=== PATIENT | male | born 1945 | race Caucasian/White ===

== ENCOUNTER 2021-07-06 09:48 | Outpatient (CLI) | payer MEDICARE, SELFPAY ==
--- NOTE | 2021-07-06 10:57 | ECG_ITS ---
Measurements Intervals [place] Rate: 54 P: 78 NM: 201 QRS: 14 QRSD: 93 T: 23 QT: 421 QTc: 401 Interpretive Statements SINUS BRADYCARDIA BORDERLINE AV CONDUCTION DELAY BORDERLINE ECG Electronically Signed On 07-06-2021 11:22:38 CDT by Nato Todd D.O.
[2021-07-06 11:34] LABS: Basophils Absolute Auto 0.1 K/mm3 (0.0-0.1); Eosinophils Absolute Auto 0.2 K/mm3 (0-0.3); Eosinophils Percent Auto 2.7 % (0-4.4); Hematocrit 52.5 % (42.0-52.0); Hemoglobin 17.2 g/dL (14.0-18.0); Immature Granulocyte Absolute 0.04 K/mm3 (0.00-0.031); Immature Granulocyte Percent A 0.6 % (0-0.5); Lymphocytes Absolute Auto 1.24 K/mm3 (0.9-3.2); Lymphocytes Percent Auto 19.7 % (18.3-44.2); Mean Corpuscular HGB Conc 32.8 g/dl (32-36); Mean Corpuscular Hemoglobin 29.8 pg (26-34); Mean Corpuscular Volume 90.8 fl (80-100); Monocytes Absolute Auto 0.5 K/mm3 (0.1-0.6); Monocytes Percent Auto 8.6 % (2.6-8.5); Neutrophils Absolute Auto 4.2 K/mm3 (1.3-6.7); Neutrophils Percent Auto 67.4 % (45.5-73.1); Platelet Count Result 218 k/mm3 (150-375); Red Blood Count 5.78 M/mm3 (4.6-6.20); Red Cell Distribution Width 14.2 % (11.5-14.5); White Blood Count 6.3 K/mm3 (4.5-10.0)
[2021-07-06 11:46] LABS: Albumin Level 4.8 g/dL (3.5-5.1); Anion Gap 8 mmol/L (8-16); Blood Urea Nitrogen 13 mg/dL (9-20); Calcium 9.1 mg/dL (8.4-10.2); Carbon Dioxide 26 mmol/L (22-30); Chloride 106 mmol/L (98-107); Estimated Glomerular Filt Rate > 60; Glucose 163 mg/dL (65-110); Potassium 4.1 mmol/L (3.4-5.0); Sodium 140 mmol/L (137-145)
[2021-07-06 11:50] LABS: Urine Cotinine NEGATIVE
== END 2021-07-06 09:49 | disposition home or self-care (01) ==
LOC: ANHSURGERY 09:55
PROVIDERS: PCP Internal Medicine; Visit Provider Orthopaedic Surgery
DX: Z01.818 Encounter for other preprocedural examination (principal); M17.12 Unilateral primary osteoarthritis, left knee
CPT/HCPCS: 80048; 80307; 82040; 85025; 86850; 86900; 86901; 87070; 87077; 87186; 93005

== ENCOUNTER 2021-07-18 03:15 | Day surgery (SDC) | payer MEDICARE, SELFPAY ==
[2021-07-06 10:39] VITALS: BP 156/80; PULSE 64; RESP 20; TEMP 36.6; O2SAT 97; BMI 33.7
--- NOTE | 2021-07-17 13:00 | WPDANESEPPF ---
Anes - Initial Pre Proc Eval Procedure: Operation Date: 07/18/21 12:00 Proposed Procedures p Left Total Knee Arthroplasty - Logan Escalante MD Date/Time: 07/17/21 13:00 Surgeon: Logan Escalante MD Pre Op Diagnosis: OA left knee Patient Data Age: 76 Gender: M Height: 1.8 m Weight: 109.9 kg Last Vital Signs Temp 97.8 F 07/06/21 10:39 Pulse 64 07/06/21 10:39 Resp 20 07/06/21 10:39 BP 156/80 H 07/06/21 10:39 Pulse Ox 97 07/06/21 10:39 Allergies Allergy/AdvReac Type Severity Reaction Status Date / Time No Known Allergies Allergy Verified 07/06/21 10:27 Home Medications Medication Instructions Recorded Confirmed Type aspirin 81 mg PO QAM 07/06/21 07/06/21 History cholecalciferol (vitamin D3) 25 mcg PO QAM 07/06/21 07/06/21 History dutasteride 0.5 mg PO HS 07/06/21 07/06/21 History empagliflozin 25 mg PO QAM 07/06/21 07/06/21 History fiber 4 tablet PO QAM 07/06/21 07/06/21 History glimepiride 4 mg PO BID 07/06/21 07/06/21 History glucosam-chondr msm6-manganese 2 cap PO QAM 07/06/21 07/06/21 History lisinopril 10 mg PO HS 07/06/21 07/06/21 History meloxicam 15 mg PO QAM 07/06/21 07/06/21 History metformin 1,000 mg PO BID 07/06/21 07/06/21 History multivitamin [Multi-Vitamin] 1 tablet PO QAM 07/06/21 07/06/21 History pioglitazone 30 mg PO QAM 07/06/21 07/06/21 History prednisolone acetate 1 drp BID 07/06/21 07/06/21 History simvastatin 40 mg HS 07/06/21 07/06/21 History Results Review: All pre-operative results and documents have been reviewed as part of the pre-operative evaluation. [facility] Past Medical History Medical History (Updated 07/17/21 @ 12:59 by Ramesh Fuentes MD) Diabetes Hyperlipidemia Hypertension Social History Social History Smoking packs per day: 1.5 Smoking cigarettes per day: 30.0 Years smoked: 10 Smoking pack-years: 15.00 Smoking status: Former smoker Additional smoking assessment comments: STATES QUITTING 1980 Alcohol use details: STATES MAYBE 3-4 DRINKS A YEAR Substance use: never Substance use type: does not use Additional living arrangements comments: LIVES WITH BROTHER Spiritual care concerns: No Anes - Eval Final PreProcedure Day of Procedure 07/17/21 13:00 Results Review: All pre-operative results and documents have been reviewed as part of the pre-operative evaluation. Informed Consent: The patient's anesthetic plan and its attendant risks and benefits were discussed with the patient/family/POA. Questions were solicited and answers provided to the satisfaction of the patient/family/POA.
[2021-07-18] VITALS (13 sets, daily range): BP systolic 153–169; BP diastolic 62–81; PULSE 67–81; RESP 15–20; TEMP 36.1–37.5; O2SAT 93–100; BMI 33.0
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
--- NOTE | 2021-07-18 07:25 | PM.IMHP ---
H&P: HPI History of Present Illness Date/Time: 07/18/21 07:25 76-year-old male presents today for a left total Knee arthroplasty. He has been having pain in this knee for several years. He has had multiple viscosupplementation injections as well as multiple cortisone injections over last several years. At this point injections are not working. It has been well over 6 months since his last injection. He is on meloxicam 15 mg daily as well. He has advanced medial compartment arthritis in left knee. Patient had his right knee replaced [place] [address] Escalante and is doing very well for him and he is very happy with results. He feels at this point he is ready proceed with left total knee arthroplasty. Chief Complaint: left knee DJD Review of Systems Review of Systems: All systems reviewed & are unremarkable except as noted in HPI and below PMFSH Past Medical History Medical History Diabetes Hyperlipidemia Hypertension Social History Social History Smoking packs per day: 1.5 Smoking cigarettes per day: 30.0 Years smoked: 10 Smoking pack-years: 15.00 Smoking status: Former smoker Additional smoking assessment comments: STATES QUITTING 1980 Alcohol use details: STATES MAYBE 3-4 DRINKS A YEAR Substance use: never Substance use type: does not use Living arrangements: with family Additional living arrangements comments: LIVES WITH BROTHER Spiritual care concerns: No Meds Home Medications and Allergies Home Medications Medication Instructions Recorded Confirmed Type aspirin 81 mg PO QAM 07/06/21 07/06/21 History cholecalciferol (vitamin D3) 25 mcg PO QAM 07/06/21 07/06/21 History dutasteride 0.5 mg PO HS 07/06/21 07/06/21 History empagliflozin 25 mg PO QAM 07/06/21 07/06/21 History fiber 4 tablet PO QAM 07/06/21 07/06/21 History glimepiride 4 mg PO BID 07/06/21 07/06/21 History glucosam-chondr msm6-manganese 2 cap PO QAM 07/06/21 07/06/21 History lisinopril 10 mg PO HS 07/06/21 07/06/21 History meloxicam 15 mg PO QAM 07/06/21 07/06/21 History metformin 1,000 mg PO BID 07/06/21 07/06/21 History multivitamin [Multi-Vitamin] 1 tablet PO QAM 07/06/21 07/06/21 History pioglitazone 30 mg PO QAM 07/06/21 07/06/21 History prednisolone acetate 1 drp BID 07/06/21 07/06/21 History simvastatin 40 mg HS 07/06/21 07/06/21 History Allergies Allergy/AdvReac Type Severity Reaction Status Date / Time No Known Allergies Allergy Verified 07/06/21 10:27 Exam Narrative: 76-year-old male alert pleasant. He is 5 ft 11 and 240 lb. His left knee has minimal effusion. Range of motion is from 7-115 degrees. Hip range of motion is slightly reduced but no discomfort with range of motion. Negative Stinchfield maneuver. Normal quad strength. Skin is all normal around the knee. 2+ dorsalis pedis and posterior tibial artery pulse. Normal sensation left lower extremity. No edema. 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 Walks with a significant limp. Resp: Auscultation: clear to auscultation bilaterally Cardio: Rate: regular rate Rhythm: regular rhythm Assessment and Plan Additional Plan 76-year-old male has severe medial compartment arthritis in left knee with continued symptoms. Again he is not improved nonsurgical treatment feels this point is ready to proceed with total knee arthroplasty. Surgical procedure as well as risks complications were discussed in detail all questions were answered we will proceed. Nasal swab did grow oxacillin sensitive Staph aureus and he has the colonizing. Chem panel is all within normal limits. Creatinine 0.80. Hemoglobin is 17 2 and platelets are 218. patient will void as Mobic and any other aspirin or ibuprofen products 1 prior surgery. He will see his primary care doctor pre-surgical clearance. We will plan his Eliquis for DVT pr
[2021-07-18] MEDS: LACTATED RINGERS 1,000 ML 30 ML IV CONT ×2 (10:29→15:50)
[2021-07-18 10:33] LABS: Glucose Point of Care 168 mg/dl (65-105)
[2021-07-18] MEDS: TRANEXAMIC ACID 1,000MG/ISO100 1,000 MG/100 ML BAG 200 MG IVPB (10:33)
[2021-07-18] MEDS: ACETAMINOPHEN 500 MG TABLET 1000 MG PO ×2 (10:35→18:30)
--- NOTE | 2021-07-18 11:52 | WPDHPUPDATE1 ---
History and Physical Update Update Date/Time: 07/18/21 11:52 History and Physical has been reviewed, including an updated exam of the patient. There are NO changes in the patient's condition. Risks, benefits, and alternatives have been discussed and questions answered. Patient agrees to proceed with procedure.
--- NOTE | 2021-07-18 11:57 | WPDANESEPPF ---
Anes - Initial Pre Proc Eval Procedure: Operation Date: 07/18/21 12:00 Proposed Procedures p Left Total Knee Arthroplasty - Logan Escalante MD Date/Time: 07/18/21 11:57 Surgeon: Logan Escalante MD Pre Op Diagnosis: OA left knee Patient Data Age: 76 Gender: M Height: 1.8 m Weight: 107.3 kg Last Vital Signs Temp 36.1 C L 07/18/21 10:05 Pulse 67 07/18/21 10:05 Resp 18 07/18/21 10:05 BP 155/67 H 07/18/21 10:05 Pulse Ox 98 07/18/21 10:05 Allergies Allergy/AdvReac Type Severity Reaction Status Date / Time No Known Allergies Allergy Verified 07/18/21 10:10 Home Medications Medication Instructions Recorded Confirmed Type aspirin 81 mg PO QAM 07/06/21 07/18/21 History cholecalciferol (vitamin D3) 25 mcg PO QAM 07/06/21 07/18/21 History dutasteride 0.5 mg PO HS 07/06/21 07/18/21 History empagliflozin 25 mg PO QAM 07/06/21 07/18/21 History fiber 4 tablet PO QAM 07/06/21 07/18/21 History glimepiride 4 mg PO BID 07/06/21 07/18/21 History glucosam-chondr msm6-manganese 2 cap PO QAM 07/06/21 07/18/21 History lisinopril 10 mg PO HS 07/06/21 07/18/21 History meloxicam 15 mg PO QAM 07/06/21 07/18/21 History metformin 1,000 mg PO BID 07/06/21 07/18/21 History multivitamin [Multi-Vitamin] 1 tablet PO QAM 07/06/21 07/18/21 History pioglitazone 30 mg PO QAM 07/06/21 07/18/21 History prednisolone acetate 1 drp BID 07/06/21 07/18/21 History simvastatin 40 mg HS 07/06/21 07/18/21 History Laboratory Tests 07/18/21 10:27 POC Capillary Glucose 168 mg/dl H mg/dl (65-105) Patient hx anesthesia problems: post op nausea/vomiting Family hx anesthesia problems: none Results Review: All pre-operative results and documents have been reviewed as part of the pre-operative evaluation. [facility] Past Medical History Medical History Diabetes Hyperlipidemia Hypertension Social History Social History Smoking packs per day: 1.5 Smoking cigarettes per day: 30.0 Years smoked: 10 Smoking pack-years: 15.00 Smoking status: Former smoker Additional smoking assessment comments: STATES QUITTING 1980 Alcohol use details: STATES MAYBE 3-4 DRINKS A YEAR Substance use: never Substance use type: does not use Living arrangements: with family Additional living arrangements comments: LIVES WITH BROTHER Spiritual care concerns: No Anes - Eval Final PreProcedure Day of Procedure 07/18/21 11:57 Patient weight: obese Heart: regular rate and rhythm Lungs: clear to auscultation and normal air movement Airway: Mallampati scale class II Neurological: alert and oriented Last oral intake: >/= 8 hours ASA classification: III Emergent: no Anesthetic plan: proceed Anesthesia type and monitoring: general LMA and standard monitoring Results Review: All pre-operative results and documents have been reviewed as part of the pre-operative evaluation. Informed Consent: The patient's anesthetic plan and its attendant risks and benefits were discussed with the patient/family/POA. Questions were solicited and answers provided to the satisfaction of the patient/family/POA.
[2021-07-18] MEDS: ceFAZolin 2 GM/D5W 50 ML 2 GM/50 ML BAG IVPB (12:11)
[2021-07-18] MEDS: ceFAZolin SODIUM 1 GM VIAL 3 GM IRRIGATION (12:52)
--- NOTE | 2021-07-18 15:31 | W.PM.PROC2 ---
Procedure Note - Detailed Date of Procedure 07/18/21 Pre-op Diagnosis OA left knee Post-op Diagnosis same Procedure Performed Left total knee arthroplasty Surgeon Logan Escalante MD Health Teacher Nicole Anesthesia general Description of Procedure Patient was brought to the operating room and general anesthesia was administered. He received 2 g Ancef weight based vancomycin 1 g of tranexamic acid preoperatively left knee prepped draped usual fashion. He did have a 7 degree flexion contracture under anesthesia and I could not passively bend him to more than 110?. Limb was exsanguinated and tourniquet elevated to 250 mmHg. 8 in longitudinal midline incision was used and a standard parapatellar arthrotomy utilized. Infrapatellar and suprapatellar fat pads were excised a quadriceps synovectomy carried out. He had normal articular cartilage on the patella. There was a small inferomedial osteophyte was trimmed and a limited lateral facetectomy was performed and I felt this was most suitable for non resurfacing. A guide theo was inserted down the femoral canal for aspiration of canal contents using the 5 degree valgus cutting bushing 10 mm of bone removed the distal femur. This removed about 7 laterally. Next the tibial plateau was cut. I tried to make a skim cut off the low point of the medial tibial plateau. He did have a bit of wear posteromedially. The PCL was recessed meniscal or remnants excised. The knee was excessively tight medially still in flexion and extension. The femur sizing guide was applied set at 5? of external rotation and posterior reference in pin holes were placed and the 72.5 cutting block was applied and AP and chamfer cuts were made and this fit well. The knee was too tight to place the 10 mm trial CR insert in either flexion or extension however therefore an additional 2 mm of bone were removed from the tibial plateau. This was made perpendicular to the axis of the tibia. The tibia was then prepared using the 79 vanguard tibial component set at proper rotation referenced to the tubercle anterior cortex of the tibia and the 2nd metatarsal ray. This was punched and we trialed and the 10 mm insert. This came out to full extension with tightness medial some lateral laxity and in flexion it was tight medially with no play and about 2 or 3 mm of gap at 90? bilaterally. I elected to remove posteromedial tibial osteophyte. 2 mm drill bit was used to make multiple perforations 5 mm apart and quarter-inch osteotome connecting these and this bone was removed. On trialing again we used the 11 insert and this had a little bit of flatus 90? much better feel to it and easily came out to full extension with 1 mm medial opening with valgus stress and 3 mm laterally. With varus stress. We trialed the 12 which was a little bit snug at 90? and it did come out to full extension but no plate medially and see just a bit tight. I felt we were balanced. I had already moved posterior femoral osteophyte which was present medially. Lug holes drilled the femoral. Step drill was used is tibial plateau the medial aspect of sclerotic and as well as the distal femur. The bony surfaces were thoroughly irrigated and dried. Two batches of methylmethacrylate were mixed 1 containing the gentamicin powder the cement was applied to the tibial component and then the femoral component cement applied to the tibia pressurized tibial component fully seated cement applied to the femur the femoral component 79 point x-ray of 72.5 fully seated the knee brought into extension with 11 mm 5 1 insert for pressurization the tourniquet released 107 minutes. Cement was allowed to harden after which excess cement was sought for removed and hemostasis was achieved. We trialed the 11 insert and there was a little bit more play opening up about a mm and half medially and extension 3 laterally a little bit of extra play at 90? so I tried the 12 and the 12 came out to full
[2021-07-18] MEDS: fentaNYL CITRATE INJ (*CRX) 100 MCG/2 ML VIAL 25 MCG IV PUSH ×3 (16:00→16:40)
[2021-07-18 16:08] LABS: Glucose Point of Care 227 mg/dl (65-105)
--- NOTE | 2021-07-18 16:08 | SUR.PHASEI ---
notified Dr. Hale of blood sugar 227
--- NOTE | 2021-07-18 17:20 | ADMGEN ---
This patient, Leandro Mckinney Jr., was admitted to Medical Room 253-01. Patient/family oriented to hospital policies and general routines including ID bracelet, bed and alarms, visiting hours, pain management, procedures, bathroom and other care routines, personal items, smoking policy, room service/diet, and visiting hours. Information on how to activate the Rapid Response Team has been discussed. Patient/Family are encouraged to report perceived risks to care and to ask questions if they do not understand what they are told or what they should do.
[2021-07-18] MEDS: DEXTROSE 5%/0.45% SOD CHL 1,000 ML 100 ML IV CONT (18:24)
[2021-07-18] MEDS: DOCUSATE SODIUM 100 MG CAPSULE PO (18:32)
[2021-07-18] MEDS: oxyCODONE HCL (*CRX) 5 MG TAB IR PO ×2 (18:32→21:40)
[2021-07-18] MEDS: GLIMEPIRIDE 2 MG TABLET 4 MG PO (18:33)
[2021-07-18] MEDS: metFORMIN HCL 500 MG TABLET 1000 MG PO (18:34)
[2021-07-18] MEDS: prednisoLONE ACETATE 1% OPHTH 5 ML 1 DROP LEFT EYE (18:36)
[2021-07-18] MEDS: SENNA/DOCUSATE SODIUM TABLET 2 TAB PO (18:36)
[2021-07-18 20:50] LABS: Glucose Point of Care 244 mg/dl (65-105)
[2021-07-18] MEDS: DUTASTERIDE 0.5 MG CAPSULE PO (21:40)
[2021-07-18] MEDS: SIMVASTATIN 5 MG TABLET 40 MG BY MOUTH (21:42)
[2021-07-18] MEDS: ONDANSETRON INJ 4 MG/2 ML VIAL IV PUSH (21:46)
[2021-07-19] MEDS: ACETAMINOPHEN 500 MG TABLET 1000 MG PO ×2 (00:33→05:35)
[2021-07-19] MEDS: oxyCODONE HCL (*CRX) 5 MG TAB IR PO ×2 (00:33→05:35)
[2021-07-19 01:56] VITALS: BP 136/60; PULSE 66; RESP 14; TEMP 36.6; O2SAT 97
[2021-07-19 04:42] VITALS: BP 115/56; PULSE 64; RESP 16; TEMP 37.1; O2SAT 96
[2021-07-19 05:33] LABS: Basophils Percent Auto 0.4 % (0.2-1.2); Eosinophils Percent Auto 0.3 % (0-4.4); Hematocrit 39.8 % (42.0-52.0); Hemoglobin 13.1 g/dL (14.0-18.0); Immature Granulocyte Absolute 0.06 K/mm3 (0.00-0.031); Immature Granulocyte Percent A 0.6 % (0-0.5); Lymphocytes Absolute Auto 1.06 K/mm3 (0.9-3.2); Lymphocytes Percent Auto 10.9 % (18.3-44.2); Mean Corpuscular HGB Conc 32.9 g/dl (32-36); Mean Corpuscular Hemoglobin 29.9 pg (26-34); Mean Corpuscular Volume 90.9 fl (80-100); Monocytes Absolute Auto 1.1 K/mm3 (0.1-0.6); Monocytes Percent Auto 10.8 % (2.6-8.5); Neutrophils Absolute Auto 7.5 K/mm3 (1.3-6.7); Platelet Count Result 163 k/mm3 (150-375); Red Blood Count 4.38 M/mm3 (4.6-6.20); Red Cell Distribution Width 14.1 % (11.5-14.5); White Blood Count 9.8 K/mm3 (4.5-10.0)
[2021-07-19 05:48] LABS: Anion Gap 6 mmol/L (8-16); Blood Urea Nitrogen 17 mg/dL (9-20); Calcium 7.9 mg/dL (8.4-10.2); Carbon Dioxide 24 mmol/L (22-30); Chloride 106 mmol/L (98-107); Estimated CRCL calculation 88 ml/min; Estimated Glomerular Filt Rate > 60; Glucose 197 mg/dL (65-110); Sodium 136 mmol/L (137-145)
--- NOTE | 2021-07-19 07:14 | PM.PNORT ---
Progress Note: A&P Additional Plan Postop day 1 patient is alert, a afebrile and vital signs are stable. He did have some mild nausea we 1st got out bed last night. No episode of vomiting. The nausea has completely dissipated at this point. The pain is well controlled. dressing is dry. Neurovascular is intact. Labs are noted. Will plan to have patient work with physical therapy today and if he continues to well plan on discharging him home this afternoon. Patient has had his right knee replaced in the past and is very familiar with the recovery. Subjective Subjective Date/Time Seen: 07/19/21 07:14 Objective Data Vital Signs Vital Signs: Vital Signs - 24 hr 07/18/21 10:05 07/18/21 15:50 07/18/21 16:00 Temperature 36.1 C L 36.2 C L Pulse Rate 67 79 78 Respiratory Rate 18 20 19 Blood Pressure 155/67 H 153/74 H 167/78 H Pulse Oximetry 98 98 97 07/18/21 16:15 07/18/21 16:20 07/18/21 16:35 Temperature Pulse Rate 81 77 74 Respiratory Rate 19 15 16 Blood Pressure 158/62 H 158/62 H 169/79 H Pulse Oximetry 100 96 94 07/18/21 16:50 07/18/21 17:05 07/18/21 17:20 Temperature 37.5 C Pulse Rate 75 73 74 Respiratory Rate 16 17 16 Blood Pressure 161/77 H 157/81 H 154/66 H Pulse Oximetry 93 97 98 07/18/21 17:35 07/18/21 18:05 07/18/21 20:10 Temperature 36.6 C 36.4 C 37.0 C Pulse Rate 77 75 75 Respiratory Rate 16 16 18 Blood Pressure 155/65 H 153/66 H 153/69 H Pulse Oximetry 95 98 95 07/18/21 20:24 07/19/21 01:56 07/19/21 04:42 Temperature 36.6 C 37.1 C Pulse Rate 72 66 64 Respiratory Rate 18 14 16 Blood Pressure 136/60 115/56 L Pulse Oximetry 96 97 96 Intake/Output Intake/Output: Intake & Output 07/16/21 07/17/21 07/18/21 07/19/21 23:59 23:59 23:59 23:59 Intake Total 850 1250 Output Total 250 300 Balance 600 950 Meds/Results Medications: Active Medications Generic Name Dose Route Start Last Admin Trade Name Yazmin PRN Reason Stop Dose Admin Acetaminophen 1,000 mg 07/18/21 18:00 07/19/21 05:35 Acetaminophen 500 Mg Tablet PO 1,000 mg Q6H CHATA Administration Apixaban 2.5 mg 07/19/21 09:00 Apixaban 2.5 Mg Tablet PO Q12HR CHATA Celecoxib 200 mg 07/19/21 08:00 Celecoxib 200 Mg Capsule PO DAILY@0800 CHATA Cephalexin HCl 500 mg 07/19/21 18:00 Cephalexin 500 Mg Capsule PO 08/02/21 17:59 Q6HR CHATA Docusate Sodium 100 mg 07/18/21 17:07 07/18/21 18:32 Docusate Sodium 100 Mg Capsule PO 100 mg BID CHATA Administration Dutasteride 0.5 mg 07/18/21 21:00 07/18/21 21:40 Dutasteride 0.5 Mg Capsule PO 0.5 mg HS CHATA Administration Glimepiride 4 mg 07/18/21 17:00 07/18/21 18:33 Glimepiride 2 Mg Tablet PO 4 mg BIDWM CHATA Administration Cefazolin Sodium 1 gm in 50 mls @ 100 mls/hr 07/18/21 20:00 07/19/21 04:40 Ancef 1 Gm/D5w 50 Ml Pm IVPB 07/19/21 12:29 Infused Q8H CHATA Infusion Dextrose/Sodium Chloride 1,000 mls @ 100 mls/hr 07/18/21 17:07 07/19/21 05:34 Dextrose 5% Sodium Chloride 0.45% IV CONT Infused .Q10H CHATA Infusion Vancomycin HCl 1,000 mg in 250 mls @ 250 mls/hr 07/18/21 22:00 07/18/21 22:45 Vancomycin 1,000 Mg/D5w 250 Ml IVPB 07/19/21 10:59 Infused Q12H CHATA Infusion Metformin HCl 1,000 mg 07/18/21 17:07 07/18/21 18:34 Metformin Hcl 500 Mg Tablet PO 1,000 mg BIDWM CHATA Administration Miscellaneous Information 1 each 07/18/21 00:01 Fiber Tab Please Specify Medication Name And Mg Dosage XX 08/17/21 00:00 CLARIFY CHATA Morphine Sulfate 2 mg 07/18/21 17:07 Morphine Sulfate (*Crx) 2 Mg/Ml Inj IV PUSH Q1H PRN Pain Rated 7-10 Multivitamins Therapeutic 1 tablet 07/19/21 09:00 Multivitamins Therapeutic Tab (*Bkc) PO QAM CHATA Naloxone HCl 0.1 mg 07/18/21 17:07 Naloxone Hcl 0.4 Mg/Ml Vial IV PUSH Q2M PRN Opiate Reversal Non-Formulary Medication 4 tablet 07/19/21 09:00 Fiber PO 08/18/21 08:[facility] [place]
--- NOTE | 2021-07-19 07:21 | PM.DS ---
DS: Admitting Diagnosis Discharge Date 07/19 Admitting Diagnosis right knee DJD DS: Summary Hospital Course Hospital Course: stable Time Spent with Patient Time attestation: Total time spent providing and/or coordinating discharge services: 76-year-old male who underwent left total knee arthroplasty on . Underwent procedure without any complications. Postoperatively he was nauseous briefly when he 1st got up out of bed. This quickly past. He is weight-bearing as tolerated. He has a Mepilex dressing over his knee. He is on Eliquis for DVT prophylaxis followed by baby aspirin. We are using hydrocodone 7.5 mg for pain control. He does not tolerate oxycodone. He is on Celebrex 200 mg once a day as well for pain control. Overall patient did well following his left total knee arthroplasty. He is going to work with physical therapy and will plan on discharging him home on 07/19. He was advised to keep leg elevated home prevent swelling but does exercise on a regular basis. His outpatient therapy starting next week. Patient was advised any questions or concerns he is to call the office otherwise will see him at his appointment date. DS: Data Data Completed and Pending Labs on day of discharge: Labs from last 24 hours 07/19/21 07/19/21 07/18/21 05:19 05:19 20:47 WBC 9.8 RBC 4.38 L Hgb 13.1 L D Hct 39.8 L MCV 90.9 MCH 29.9 MCHC 32.9 RDW 14.1 Plt Count 163 MPV 12.0 H Immature Gran % (Auto) 0.6 H Neut % (Auto) 77.0 H Lymph % (Auto) 10.9 L [place] % (Auto) 10.8 H Eos % (Auto) 0.3 Baso % (Auto) 0.4 Lymph # (Auto) 1.06 [place] # (Auto) 1.1 H Eos # (Auto) 0.0 Baso # (Auto) 0.0 Abs Immat Gran (auto) 0.06 H Absolute Neuts (auto) 7.5 H Absolute Nucleated RBC 0.0 Nucleated RBC % 0.0 Sodium 136 L Potassium 4.0 Chloride 106 Carbon Dioxide 24 Anion Gap 6 L BUN 17 Creatinine 0.80 Estim Creat Clear Calc 88 Estimated GFR > 60 Glucose 197 H POC Capillary Glucose 244 H Calcium 7.9 L 07/18/21 07/18/21 16:05 10:27 WBC RBC Hgb Hct MCV MCH MCHC RDW Plt Count MPV Immature Gran % (Auto) Neut % (Auto) Lymph % (Auto) [place] % (Auto) Eos % (Auto) Baso % (Auto) Lymph # (Auto) [place] # (Auto) Eos # (Auto) Baso # (Auto) Abs Immat Gran (auto) Absolute Neuts (auto) Absolute Nucleated RBC Nucleated RBC % Sodium Potassium Chloride Carbon Dioxide Anion Gap BUN Creatinine Estim Creat Clear Calc Estimated GFR Glucose POC Capillary Glucose 227 H 168 H Calcium Discharge Plan Discharge Patient Disposition: Home, Self-Care Discharge Instructions: LOGAN ESCALANTE M.D [facility] [address] [place] [id number] POST-OPERATIVE DISCHARGE INSTRUCTIONS TOTAL KNEE ARTHROPLASTY 1. When resting, lie on back with leg elevated above hear to minimize swelling. Significant swelling could indicate a blood clot and if this occurs call the office (or go to the ER) to have a venous ultrasound. 2. Do exercise 5 times a day. 3. Do not sit with leg down except for meals. 4. Wound Care: Nursing will give additional dressings at discharge. Patient to change dressing at home 1 week from surgery, then maintain until seen in office. 5. May shower with dressing in place. 6. Follow weight bearing status instructions. 7. Limit Sitting in chair with leg down to 20 minutes at a time 3 times a day. Stand Alone Forms: General Discharge Instructions Follow-up/Referrals: Logan Escalante MD [Physician] - Keep Reg. Scheduled Appt. Discharge Medications: New Eliquis 2.5 mg Tablet 2.5 mg PO Q12HR Qty: 27 RF: 0 celecoxib [Celebrex] 200 mg Capsule 200 mg PO DAILY@0800 Qty: 30 RF: 0 sennosides-docusate sodium [Senokot-S] 8.6-50 mg Tablet 2 tab PO BID Qty: 60 RF: 0 ce
[2021-07-19 07:33] LABS: Glucose Point of Care 176 mg/dl (65-105)
[2021-07-19] MEDS: ONDANSETRON INJ 4 MG/2 ML VIAL IV PUSH (07:49)
[2021-07-19] MEDS: prednisoLONE ACETATE 1% OPHTH 5 ML 1 DROP LEFT EYE (07:56)
--- NOTE | 2021-07-19 08:06 | PM.IMCN ---
Assessment and Plan Assessment and plan (1) History of total right knee replacement (TKR): Code(s): Z96.651 - Presence of right artificial knee joint Status: Acute Assessment and Plan: He underwent his procedure without any aren and postop complications other than some nausea. PT is going to see him soon. Orthopedic follow-up. Controlled as per Orthopedic Service. DVT prophylaxis as per orthopedic service. (2) Hypertension: Code(s): I10 - Essential (primary) hypertension Status: Inactive Assessment and Plan: He is on lisinopril which will be continued. Continue to monitor his hemodynamics closely. (3) Hyperlipidemia: Code(s): E78.5 - Hyperlipidemia, unspecified Status: Inactive Assessment and Plan: He will continue his simvastatin. Lipid profile can be check and as an outpatient. (4) Diabetes: Code(s): E11.9 - Type 2 diabetes mellitus without complications Status: Inactive Assessment and Plan: He is on multiple diabetic medications. Will hold off metformin. Continue rest of the diabetes medications. Insulin sliding scale and fingerstick sugars. Additional Plan He is supposed to get discharged later today if he does well with PT. HPI Data of Consult Consult date: 07/19/21 Requesting Physician: Logan Escalante MD Primary Care Provider: Jose Manuel Rodriguez, Consult Narrative Narrative: Leandro Mckinney Jr. is a 76 year old male With past medical history of diabetes, hyperlipidemia and hypertension who was admitted to the hospital after elective left total knee arthroplasty. He has been having pain in his left knee for the last few years. He had some steroid injection in his left knee in the past but still continued to have pain. He did have his right knee arthroplasty in 2019. He denied have any preop symptoms of chest pain shortness of breath cough fever and chills. His surgery was done on 07/18 without any complication. He developed nausea some retching postprocedure. He denied have any significant symptoms of chest pain shortness of breath palpitation abdominal pain fever and chills. His nausea has somewhat improved and tolerating diet. He is supposed to be seen/evaluated by PT. If he does well when he is going to get discharged later in the afternoon. Review of Systems Review of Systems: A comprehensive review of systems has been reviewed with the patient and most of the symptoms are negative except the one's mentioned above in HPI. [facility] Past Medical History Medical History (Updated 07/19/21 @ 08:10 by Gibran Andujar MD) Diabetes Hyperlipidemia Hypertension Social History Social History Smoking packs per day: 1.5 Smoking cigarettes per day: 30.0 Years smoked: 10 Smoking pack-years: 15.00 Smoking status: Former smoker Additional smoking assessment comments: STATES QUITTING 1980 Alcohol use details: STATES MAYBE 3-4 DRINKS A YEAR Substance use: never Substance use type: does not use Living arrangements: with family Additional living arrangements comments: LIVES WITH BROTHER Spiritual care concerns: No Meds Home Medications and Allergies Home Medications Medication Instructions Recorded Confirmed Type cholecalciferol (vitamin D3) 25 mcg PO QAM 07/06/21 07/18/21 History dutasteride 0.5 mg PO HS 07/06/21 07/18/21 History empagliflozin 25 mg PO QAM 07/06/21 07/18/21 History fiber 4 tablet PO QAM 07/06/21 07/18/21 History glimepiride 4 mg PO BID 07/06/21 07/18/21 History glucosam-chondr msm6-manganese 2 cap PO QAM 07/06/21 07/18/21 History lisinopril 10 mg PO HS 07/06/21 07/18/21 History metformin 1,000 mg PO BID 07/06/21 07/18/21 History multivitamin 1 tablet PO QAM 07/06/21 07/18/21 History pioglitazone 30 mg PO QAM 07/06/21 07/18/21 History prednisolone acetate 1 drp BID 07/06/21 07/18/21 History simvasta
[2021-07-19] MEDS: GLIMEPIRIDE 2 MG TABLET 4 MG PO (08:07)
[2021-07-19] MEDS: metFORMIN HCL 500 MG TABLET 1000 MG PO (08:07)
[2021-07-19] MEDS: CELECOXIB 200 MG CAPSULE PO (09:01)
[2021-07-19] MEDS: MULTIVITAMINS THERAPEUTIC TAB (*BKC) 1 TABLET PO (09:02)
[2021-07-19] MEDS: DOCUSATE SODIUM 100 MG CAPSULE PO (09:02)
[2021-07-19] MEDS: CHOLECALCIFEROL 1,000 UNITS TABLET 1000 UNITS PO (09:02)
[2021-07-19] MEDS: APIXABAN 2.5 MG TABLET PO (09:02)
[2021-07-19] MEDS: PIOGLITAZONE HCL 30 MG TABLET PO (09:02)
[2021-07-19] MEDS: SENNA/DOCUSATE SODIUM TABLET 2 TAB PO (09:02)
--- NOTE | 2021-07-19 09:05 | WPDANESPN ---
Anes - Prog Note Post-Op Date/Time: 07/19/21 09:05 Cardiovascular status: normal Respiratory status: normal Airway patency: baseline Mental status: baseline Post-Op hydration status: normal Vital Signs: Last Vital Signs Temp 98.8 F 07/19/21 04:42 Pulse 64 07/19/21 04:42 Resp 16 07/19/21 04:42 BP 115/56 L 07/19/21 04:42 Pulse Ox 96 07/19/21 04:42 Pain Score (VAS): 10/08 I/O: Intake & Output 07/18/21 07/19/21 07/19/21 23:59 07:59 15:59 Intake Total 700 1250 Output Total 250 300 Balance 450 950 Laboratory Tests 07/19/21 05:19 07/19/21 05:19 07/18/21 07/18/21 07/18/21 10:27 16:05 20:47 WBC RBC Hgb Hct MCV MCH MCHC RDW Plt Count MPV Immature Gran % (Auto) Neut % (Auto) Lymph % (Auto) [place]y % (Auto) Eos % (Auto) Baso % (Auto) Lymph # (Auto) [place] # (Auto) Eos # (Auto) Baso # (Auto) Abs Immat Gran (auto) Absolute Neuts (auto) Absolute Nucleated RBC Nucleated RBC % Sodium Potassium Chloride Carbon Dioxide Anion Gap BUN Creatinine Estim Creat Clear Calc Estimated GFR Glucose POC Capillary Glucose 168 H 227 H 244 H Calcium 07/19/21 07/19/21 07/19/21 05:19 05:19 07:30 WBC 9.8 RBC 4.38 L Hgb 13.1 L D Hct 39.8 L MCV 90.9 MCH 29.9 MCHC 32.9 RDW 14.1 Plt Count 163 MPV 12.0 H Immature Gran % (Auto) 0.6 H Neut % (Auto) 77.0 H Lymph % (Auto) 10.9 L [place] % (Auto) 10.8 H Eos % (Auto) 0.3 Baso % (Auto) 0.4 Lymph # (Auto) 1.06 [place]y # (Auto) 1.1 H Eos # (Auto) 0.0 Baso # (Auto) 0.0 Abs Immat Gran (auto) 0.06 H Absolute Neuts (auto) 7.5 H Absolute Nucleated RBC 0.0 Nucleated RBC % 0.0 Sodium 136 L Potassium 4.0 Chloride 106 Carbon Dioxide 24 Anion Gap 6 L BUN 17 Creatinine 0.80 Estim Creat Clear Calc 88 Estimated GFR > 60 Glucose 197 H POC Capillary Glucose 176 H Calcium 7.9 L Post-procedural complaints: none Patient Feedback: Patient satisfied with anesthetic care.
[2021-07-19 10:00] VITALS: BP 140/85; PULSE 64; RESP 18; TEMP 36.9; O2SAT 97
[2021-07-19] MEDS: HYDROcodone/acetaminophen (*CRX) 7.5-325 MG TABLET 1 TAB PO (10:30)
[2021-07-19 11:40] LABS: Glucose Point of Care 163 mg/dl (65-105)
== END 2021-07-19 14:20 | disposition home or self-care (01) ==
LOC: ANHSURGERY 09:47 → ANH2MED 16:52
PROVIDERS: PCP Internal Medicine; Visit Provider Orthopaedic Surgery
PROC: (CPT 27447; principal; 2021-07-18 12:00)
DX: M17.12 Unilateral primary osteoarthritis, left knee (principal); I10 Essential (primary) hypertension; E78.5 Hyperlipidemia, unspecified; E11.9 Type 2 diabetes mellitus without complications; Z87.891 Personal history of nicotine dependence; Z79.82 Long term (current) use of aspirin; Z79.84 Long term (current) use of oral hypoglycemic drugs
CPT/HCPCS: 27447; 36415; 73560; 80048; 80307; 82040; 82948; 85025; 86850; 86900; 86901; 87070; 87077; 87186; 93005; 97110; 97116; 97161; 97165; 97535; A9270; C1713; C1776; J0171; J0690; J1885; J2270; J2405; J2704; J2795; J3010; J3370; J7120

== ENCOUNTER 2024-08-28 09:23 | Emergency (ER) | payer MEDICARE, SELFPAY ==
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
--- NOTE | ~2024-08-28 | US_ITS ---
US venous doppler LE RT DATE: 08/28/2024 11:32 INDICATION: Injury, hematoma, swelling of the right lower extremity TECHNIQUE: Real-time and color flow imaging and Doppler analysis of the veins of the right lower extr emity COMPARISON: None FINDINGS: The right greater saphenous vein is patent. There is spontaneous and phasic flow and normal augmentation and color flow signal and normal compression of the deep veins of the right lower extre mity. IMPRESSION: No evidence of deep venous thrombosis of right lower extremity Reviewed, dictated and finalized at [facility]. Reviewed, dictated and finalized at location [facility]. [employer]
[2024-08-28 09:46] VITALS: BP 136/58; PULSE 68; RESP 17; TEMP 36.6; O2SAT 99
[2024-08-28 11:08] VITALS: BP 124/61; PULSE 78; RESP 16; TEMP 36.6; O2SAT 99
--- NOTE | 2024-08-28 11:50 | ED.LOWEXIN ---
HPI - Extremity Injury (Lower) General Chief Complaint: Extremity Injury, Lower Stated Complaint: leg injury Time Seen by Provider: 08/28/24 09:57 Source: patient Mode of arrival: ambulatory Limitations: no limitations History of Present Illness HPI Narrative: This is a 79-year-old male, with history of hypertension, hyperlipidemia and history of DVT on Eliquis, who presents emergency department complaining of right foreleg swelling for the past week. The patient states he was running on a treadmill, when he tripped and scraped the right foreleg in thigh on the machine. He has since developed swelling of the right foreleg that has not resolved despite icing, elevation and compression. He denies shortness of breath, weakness, numbness, fevers or significant pain. He states he has been able to ambulate without difficulty despite this injury. He states his last tetanus vaccination within the last 5 months. He has no other complaints at this time. Related Data Home Medications Medication Instructions Recorded Confirmed cholecalciferol (vitamin D3) 25 25 mcg PO QAM 07/06/21 07/18/21 mcg (1,000 unit) tablet dutasteride 0.5 mg capsule 0.5 mg PO HS 07/06/21 07/18/21 empagliflozin 25 mg tablet 25 mg PO QAM 07/06/21 07/18/21 fiber 4 tablet PO QAM 07/06/21 07/18/21 glimepiride 4 mg tablet 4 mg PO BID 07/06/21 07/18/21 glucosamine 467 mg-chondroitin msm 2 cap PO QAM 07/06/21 07/18/21 no.6 438 mg-manganes 0.7 mg capsule lisinopril 10 mg tablet 10 mg PO HS 07/06/21 07/18/21 metformin 1,000 mg tablet 1,000 mg PO BID 07/06/21 07/18/21 multivitamin 1 tablet PO QAM 07/06/21 07/18/21 pioglitazone 30 mg tablet 30 mg PO QAM 07/06/21 07/18/21 prednisolone acetate 1 % eye 1 drp BID 07/06/21 07/18/21 drops,suspension simvastatin 40 mg tablet 40 mg HS 07/06/21 07/18/21 Allergies Allergy/AdvReac Type Severity Reaction Status Date / Time No Known Allergies Allergy Verified 08/28/24 09:26 Review of Systems Review of Systems: All systems reviewed & are unremarkable except as noted in HPI and below PMFSH Past Medical History Medical History Diabetes Hyperlipidemia Hypertension Surgical History Surgical History (Updated 08/28/24 @ 21:09 by Bossman Rodriguez MD) History of total right knee replacement (TKR) Social History Social History Smoking packs per day: 1.5 Smoking cigarettes per day: 30.0 Years smoked: 10 Smoking pack-years: 15.00 Smoking status: Former smoker Additional smoking assessment comments: STATES QUITTING 1980 Alcohol use details: STATES MAYBE 3-4 DRINKS A YEAR Substance use: never Substance use type: does not use Living arrangements: with family Additional living arrangements comments: LIVES WITH BROTHER Spiritual care concerns: No Exam Narrative: GENERAL: Well-developed, well-nourished, and in no acute distress. HEAD: Normocephalic, atraumatic. EYES: PERRLA and EOMI. CHEST: Clear to auscultation. No respiratory distress. No wheezes rales or rhonchi HEART: Regular rate and rhythm. No murmur heard. Normal peripheral pulses. ABDOMEN: Soft, nontender, nondistended, normal active bowel sounds. EXTREMITIES: There is a large, nontender area swelling and ecchymosis at the proximal, lateral aspect of the right foreleg that appears consistent with a hematoma. There is ecchymosis noted to the posterior aspect of the right knee without tenderness, erythema or induration. There is a an abrasion noted over the proximal, anterior aspect of the right thigh measuring approximately 10 x 7 cm. Normal range of motion. No edema. SKIN: Warm, dry, no rash. NEURO: Alert and oriented x3. No focal deficit. Moving all 4 limbs spontaneously PSYCH: Normal mood and affect. Course Course Emergency Course: 11:50 - X-ray of the right foreleg not concerning for fracture or dislocation. Ultrasound not concerning for DVT. I suspect the patient's swelling is related to a hematoma. The patient's exam is not concerning for compartment syndrome or for vascular compromise. Will discharge with recommendation for RICE therapy and primary care follow-up. I discussed the findings and recommendations with the patient. Discussed return and emergency precautions including signs/symptoms of compartment syndrome and wound infection. The patient voiced understanding and agreement with the plan. All questions answered to his satisfaction. Vital Signs Vital signs: Vital Signs Temperature 97.9 F 08/28/24 09:46 Pulse Rate 68 08/28/24 09:46 Respiratory Rate 17 08/28/24 09:46 Blood Pressure 136/58 L 08/28/24 09:46 Pulse Oximetry 99 08/28/24 09:46 Temperature 97.9 F 08/28/24 11:08 Pulse Rate 78 08/28/24 11:08 Respiratory Rate 16 08/28/24 11:08 Blood Pressure 124/61 08/28/24 11:08 Pulse Oximetry 99 08/28/24 11:08 MDM - Extremity Injury (Lower) MDM Narrative Medical decision making narrative: Plan: Imaging, reassess Differential Diagnosis Differential diagnosis: Likely other (Tibia fracture, hematoma, DVT, other) Discharge Plan Discharge Clinical Impression: Hematoma of right lower leg Abrasion of right thigh Qualifiers: Encounter type: initial encounter Qualified Code(s): S70.311A - Abrasion, right thigh, initial encounter Patient Disposition: Home, Self-Care Condition: Stable Instructions: Antibiotic Form, Contusion in Adults (ED) Additional Instructions: You were seen in the emergency department. X-ray of the right leg was not concerning for fracture or dislocation. An ultrasound was not concerning for blood clot. I suspect the swelling in the leg is related to a hematoma (previous bleeding under the skin). The remainder of your exam is reassuring. I recommend icing, compression, elevation above the level of the heart and follow-up with your primary care doctor. If you develop fevers with rapidly spreading redness and increasing pain, the leg appears blue/cold, or if you have other emergent concerns for life, limb, or eyesight, return to the emergency department. Patient Language: Ghanaian Prescriptions: No Action multivitamin Tablet 1 tablet PO QAM simvastatin 40 mg tablet 40 mg HS prednisolone acetate 1 % drops,suspension 1 drp BID Patient Comments: LT EYE ONLY metformin 1,000 mg Tablet 1,000 mg PO BID lisinopril 10 mg Tablet 10 mg PO HS glimepiride 4 mg Tablet 4 mg PO BID fiber Tablet 4 tablet PO QAM pioglitazone 30 mg Tablet 30 mg PO QAM dutasteride 0.5 mg Capsule 0.5 mg PO HS cholecalciferol (vitamin D3) 25 mcg (1,000 unit) Tablet 25 mcg PO QAM empagliflozin 25 mg Tablet 25 mg PO QAM glucosam-chondr msm6-manganese 467-438-0.7 mg Capsule 2 cap PO QAM Eliquis 2.5 mg Tablet 2.5 mg PO Q12HR Qty: 27 0RF celecoxib [Celebrex] 200 mg Capsule 200 mg PO DAILY@0800 Qty: 30 0RF sennosides-docusate sodium [Senokot-S] 8.6-50 mg Tablet 2 tab PO BID Qty: 60 0RF cephalexin 500 mg Capsule 500 mg PO Q6HR Qty: 40 0RF hydrocodone-acetaminophen 7.5-325 mg tablet 1 tablet PO Q4H Qty: 40 0RF ondansetron HCl [Zofran] 4 mg tablet 4 mg PO Q8H PRN (Reason: nausea and vomiting) Qty: 20 0RF Follow-up/Referrals: Michael,Jose Manuel Camargo MD [Primary Care Provider] - 1 Week Time of Disposition: 11:52
== END 2024-08-28 12:20 | disposition home or self-care (01) ==
PROVIDERS: Emergency Provider Preventive Medicine Aerospace Medicine; PCP Internal Medicine
DX: S80.11XA Contusion of right lower leg, initial encounter (principal); S70.311A Abrasion, right thigh, initial encounter; I10 Essential (primary) hypertension; E78.5 Hyperlipidemia, unspecified; E11.9 Type 2 diabetes mellitus without complications; Z86.718 Personal history of other venous thrombosis and embolism; Z79.84 Long term (current) use of oral hypoglycemic drugs; Z79.01 Long term (current) use of anticoagulants; Z79.899 Other long term (current) drug therapy; Y93.A1 Activity, exercise machines primarily for cardiorespiratory conditioning; W01.198A Fall on same level from slipping, tripping and stumbling with subsequent striking against other object, initial encounter
CPT/HCPCS: 73590; 93971; 99284